=== PATIENT | female | born 1995 | race Two or more races ===

== ENCOUNTER 2021-10-04 19:02 | Emergency (ER) | payer OTHER ==
[~2021-10-04] VITALS: Ht 144.8 cm; Wt 46.7 kg
[2021-10-04] MEDS ORDERED: ABILIFY2 MG PO (19:47)
[2021-10-04] MEDS ORDERED: ZITHROMAX500 MG PO (22:29)
[2021-10-04] MEDS ORDERED: TUSSI-PRES LIQ474 ML PO (22:29)
[2021-10-04] MEDS ORDERED: MEDROLPACK PO (22:29)
== END 2021-10-04 22:59 | disposition home or self-care (01) ==
LOC: ER 19:02
DX: U07.1 COVID-19 (principal); Z91.018 Allergy to other foods